=== PATIENT | male | born 1970 | race Two or more races ===

== ENCOUNTER 2022-08-06 06:00 | Day surgery (SDC) | payer OTHER ==
[~2022-08-06] VITALS: Ht 172.7 cm; Wt 104.3 kg
== END 2022-08-06 12:30 | disposition home or self-care (01) ==
LOC: CIR.AMB 06:00
PROVIDERS: ATTEND Urology
DX: N47.1 Phimosis (principal); N47.7 Other inflammatory diseases of prepuce